=== PATIENT | male | born 1940 | race Caucasian/White ===

== ENCOUNTER 2017-11-02 21:11 | Emergency (ER) | payer MEDICARE, BC ==
[~2017-11-02] VITALS: Ht 175.3 cm; Wt 101.2 kg
[2017-11-02 21:25] VITALS: BP 121/80
--- NOTE | 2017-11-02 21:39 | Emergency Room Report ---
History of Present Illness General Chief Complaint: Multiple Trauma/Fall Source: Patient Present Illness HPI Is a 77-year-old male has multiple medical problem and also problem with his back with a stimulator. He presents with chief complaint of right shoulder pain. He was walking into the pool for exercising. He slipped on a step and fell onto his right shoulder. This occurred this morning. No head injury. Since then his been increasing right shoulder and upper arm pain. Worse with movement. Pain is 9/10. No other injury. Did not pass out. Allergies: Coded Allergies: No Known Allergies (Unverified , 11/02/17) Patient History Past Medical History: see triage record, old chart reviewed Past Surgical History: other Pertinent Family History: none Social History: Denies: smoking Immunizations: other Reviewed Nursing Documentation: PMH: Agreed, PSxH: Agreed Nursing Documentation-PMH Past Medical History: No History, Except For Hx Neurological Problems: No - Left knee replacement, 2 right knee replacement , left shoulder rotator cuff Hx Cerebrovascular Accident: Yes - No deficit Review of Systems Eye: Denies: eye pain, blurred vision ENT: Denies: ear pain, nose congestion, throat swelling Respiratory: Denies: cough, shortness of breath Cardiovascular: Denies: chest pain, palpitations Gastrointestinal: Denies: abdominal pain, diarrhea, nausea, vomiting Musculoskeletal: Reports: joint pain, muscle pain, Denies: back pain Skin: Denies: rash Neurological: Denies: headache, numbness Endocrine: Denies: increased thirst, increased urine Hematologic/Lymphatic: Denies: easy bruising All Other Systems: negative except mentioned in HPI Physical Exam Vital Signs Date Time Temp Pulse Resp B/P (MAP) Pulse Ox O2 Delivery O2 Flow Rate FiO2 11/02/17 21:18 98.4 90 16 121/80 98 Room Air vitals normal Sp02 EP Interpretation: reviewed, normal General Appearance: well appearing, no apparent distress, alert Head: normocephalic, atraumatic Eyes: bilateral eye PERRL, bilateral eye EOMI ENT: hearing grossly normal, normal pharynx Neck: full range of motion, supple, no meningismus Respiratory: chest non-tender, lungs clear, normal breath sounds Cardiovascular #1: regular rate, rhythm, no murmur Gastrointestinal: normal bowel sounds, non tender, no mass, no organomegaly, no bruit, non-distended Musculoskeletal: back normal, gait/station normal, other - Right shoulder: Diffuse tenderness. Decreased range of motion secondary to pain. Sensation normal. Full range of motion of the elbow. Full range of motion the wrist. Psychiatric: mood/affect normal Skin: warm/dry Procedures Splinting Splinting : Consent: Verbal Location: Right shoulder Pre-Made Type: Sling Pre-Proc Neuro Vasc Exam: normal Post-Proc Neuro Vasc Exam: normal Patient Tolerated: Well Complications: None Medical Decision Making Diagnostic Impression: Primary Impression: Contusion, shoulder /upper arm ER Course Patient presents with a fall and contusion to the right upper arm/shoulder. No fracture seen. He may have soft tissue injury. May have ligament or tendon injury. MRI would be a better test for this. This can be done as an outpatient. Explained this to family. We'll discharge home. Other X-Ray Diagnostic Results Other X-Ray Diagnostic Results : X-Ray ordered: Right shoulder # of Views/Limited Vs Complete: 3 View Indication: Pain EP Interpretation: Yes Interpretation: no dislocation, no soft tissue swelling, no fractures Impression: No acute disease Electronically Signed by: Law Mcintosh MD Last Vital Signs Date Time Temp Pulse Resp B/P (MAP) Pulse Ox O2 Delivery O2 Flow Rate FiO2 11/02/17 21:25 98.4 80 16 121/80 98 Room Air Status: improved Disposition: HOME, SELF-CARE Condition: Stable Scripts Hydrocodone/Acetaminophen 5-325* (HYDROCODONE/ACETAMINOPHEN 5-325*) 1 Each Tablet 1 TAB ORAL Q6H Y for For Pain, #30 TAB 0 Refills Prov: LAW MCINTOSH M.D. 11/02/17 Additional Instructions: Followup with your DrRadha in 7 days. Return if symptom worsen. You may benefit from an MRI of the shoulder to be evaluated for tendon, ligament, or soft tissue injury. LAW MCINTOSH M.D. Nov 02, 2017 21:39
[2017-11-02] MEDS ORDERED: HYDROCODON-ACE1 EA15 ORAL (22:08)
[2017-11-02 22:14] VITALS: BP 121/80
--- NOTE | 2017-11-03 10:17 | Diagnostic Imaging Report ---
Indication: Pain status post trauma Technique: XRAY Shoulder Compl R Comparison: None Findings: There is no acute fracture or dislocation. There is suggestion of mild Hill-Sachs deformity. Imaged right lung is clear. No radiopaque foreign body identified. Impression: No acute fracture or dislocation. Suggestion of mild Hill-Sachs deformity. This may be sequela of prior shoulder dislocation.
== END 2017-11-02 22:10 | disposition home or self-care (01) ==
LOC: EMR 22:10
DX: S40.011A Contusion of right shoulder, initial encounter (principal); W01.0XXA Fall on same level from slipping, tripping and stumbling without subsequent striking against object, initial encounter; Y92.89 Other specified places as the place of occurrence of the external cause; Z96.643 Presence of artificial hip joint, bilateral; Z96.662 Presence of left artificial ankle joint
CPT/HCPCS: 29240; 73030; 96372; 99283; J1170